=== PATIENT | female | born 1975 | race Hispanic/Latino ===

== ENCOUNTER 2020-04-15 17:10 | Emergency (ER) | payer OTHER ==
[2020-04-15] MEDS ORDERED: ACETAMINOPHEN-CODEINE 300/30MG TAB ONE (18:34)
== END 2020-04-15 20:28 | disposition home or self-care (01) ==
LOC: EDH 17:10
DX: S39.012A Strain of muscle, fascia and tendon of lower back, initial encounter (principal); S09.90XA Unspecified injury of head, initial encounter; M79.18 Myalgia, other site; W18.39XA Other fall on same level, initial encounter; Y93.89 Activity, other specified; Y92.89 Other specified places as the place of occurrence of the external cause; Y99.8 Other external cause status
CPT/HCPCS: 70450; 72125; 72128; 72131

== ENCOUNTER 2024-04-26 14:11 | Emergency (ER) | payer SELFPAY ==
[~2024-04-26] VITALS: Ht 172.7 cm; Wt 86.6 kg
--- NOTE | 2024-04-26 14:29 | ERN ---
ED Note History of Present Illness Stated Complaint: SOB Chief Complaint: Cough Time Seen by MD: 14:15 Dictation: Patient is a 49-year-old female coming in today with complaints of shortness a breath and cough intermittent and nonproductive for two weeks. No fever no chills no nausea vomiting no loss of taste or smell. She states she has already been seen at [facility] for the same complaint and they told her everything was fine and then she went and saw a doctor. Doctor referred her to [facility] for definitive care. No treatment has been rendered by her doctor or [facility]. Denies any history of chest pain back pain no history of asthma pulmonary fibrosis and cough is nonproductive. Allergies: Coded Allergies: No Known Allergies (Unverified Allergy, Unknown, 04/26/24) Past Medical History Past Medical History: Anxiety, Depression, High Cholesterol Surgical History: Appendectomy Surgical History Other: TUMMY TUCK, BREAST REDUCTION History: Not Applicable LMP: Mar 17, 2024 RN Note Reviewed/Agreed w/PFSH: Yes Review of System Dictation CONSTITUTIONAL: Negative except for HPI HEAD/FACE: Negative except for HPI EENT: Negative except for HPI RESPIRATORY: Negative except for HPI SOB/nonproductive cough, two weeks GASTROINTESTINAL/ABDOMINAL: Negative except for HPI GENITOURINARY: Negative except for HPI MUSCULOSKELETAL: Negative except for HPI INTEGUMENTARY: Negative except for HPI NEUROLOGICAL/PSYCH: Negative except for HPI HEMATOLOGIC/LYMPHATIC: Negative except for HPI All Systems Negative, Except as noted above. 13 point review of systems assessed and all negative except for above. Initial Vital Sign VS Vital Signs Date Time Temp Pulse Resp B/P (MAP) Pulse Ox O2 Delivery O2 Flow Rate FiO2 04/26/24 14:13 98.4 99 20 118/76 99 0 04/26/24 15:05 Room Air* 21 Physical Exam Dictation Vital Signs reviewed General Appearance: Alert, oriented x 3, n mild acute distress, well developed, nourished. Head and Face: non-traumatic. Eyes: PERRL, pink conjunctivas, eyelid no trauma, anterior chamber with arcus senilis. Ears: Pinnas intact and no signs of trauma or erythema ear canals clear and no discharge TM no erythema Nose: No discharge, no bleeding. Oropharynx: Mouth normal, tongue pink, pharynx clear,no erythema, tonsils no exudates, no abscesses noted, mucous membrane moist Neck: Supple, non-tender, no thyromegaly, no masses, no JVD, no bruits Breast:Deferred Chest:No tenderness, no crepitus, no paradoxical movement, no retractions Lungs:Clear, well-ventilated, symmetric, no rales, no wheezing, no rhonchi, no stridor, good breath sounds bilaterally no tachypnea no retractions Heart: Regular rate, regular rhythm, no murmur, no gallops Vascular: no peripheral edema, Abdomen: Soft, positive bowel sounds, nondistended, no guarding, nontender, no rebound, no masses no hepatomegaly, no splenomegaly, no Kirby's sign, no hernias. Rectal: Deferred Genital: Deferred Neurological: Normal speech, motor function intact, sensory function intact Musculoskeletal: Neck nontender, full range of motion, back nontender, full range of motion, Extremities: nontender, full range of motion Skin: Color pink, dry, no turgor, no rash, no lacerations, no abrasions, no contusions. Lymphatic: Deferred Results (Laboratory/Radiology) Laboratory/Radiology Laboratory Tests Test 04/26/24 14:42 SARS-CoV-2 Antigen (Rapid) PRESUMPTIVE NEGATIVE Group A Streptococcus Rapid negative (NEGATIVE) 1558, CHEST 1VW HISTORY: Shortness of breath, cough COMPARISON: None FINDINGS: A frontal projection of the chest was obtained. No acute pulmonary infiltrates is seen. The heart is normal in size. Prominent interstitial markings are seen. Mild degenerative changes are seen. No evidence of aortic calcification is seen. IMPRESSION: 1. No acute pulmonary infiltrate is seen. Labs Reviewed?: Yes ED Course ED Course Orders Procedure Category Date Status Time Covid19 (Sars Antigen LAB 04/26/24 Complete Rapid) 14:23 Chest 1vw RAD 04/26/24 Resulted 14:23 Dexamethasone 4mg/Ml PHA 04/26/24 Complete 1ml Vial (Dexametha 14:30 Rapid (Group A Strep) LAB 04/26/24 Complete 14:23 Budesonide 0.5 Mg/2 PHA 04/26/24 Complete Ml Inh (Pulmicort 0. 14:23 Albuterol 0.083% PHA 04/26/24 Complete 2.5mg/3ml (Proventil 14:30 Current Medications Medications (Trade) Dose Ordered Sig/Cresencio Route PRN Reason Start Time Stop Time Status Last Admin Dose Admin Albuterol Sulfate (Proventil 0.083% 2.5mg/3ml) 5 mg ONCE ONCE IH 04/26/24 14:30 04/26/24 14:31 DC 04/26/24 15:19 Budesonide (Pulmicort 0.5 Mg/2ml) 1 mg ONCE STAT IH 04/26/24 14:23 04/26/24 14:27 DC 04/26/24 15:19 Dexamethasone Sodium Phosphate (dexaMETHasone 4MG/ML 1ML VIAL) 8 mg ONCE ONCE IM 04/26/24 14:30 04/26/24 14:31 DC 04/26/24 15:29 Vital Signs Date Time Temp Pulse Resp B/P (MAP) Pulse Ox O2 Delivery O2 Flow Rate FiO2 04/26/24 15:21 90 20 04/26/24 15:05 98.4 99 18 118/76 99 Room Air* 0 21 04/26/24 14:13 98.4 99 20 118/76 99 0 SIXTEEN 40, COUGH IS MARKEDLY IMPROVED AFTER BUDESONIDE AND STEROIDS. DISCHARGED HOME WITH REACTIVE AIRWAY DISEASE AND COUGH. TOLD TO SEE HER PRIMARY CARE DOCTOR. Medical Decision Making MDM MDM DISCHARGE BASED ON CHEST X-RAY AND SWABS FOR STREP AND COVID. CHEST X-RAY CLEAR SWABS NEGATIVE PATIENT TREATED WITH STEROIDS AND BUDESONIDE WITH ALBUTEROL STATES SHE FEELS MARKEDLY IMPROVED AND COUGH IS CLEAR. WE WILL DISCHARGED TO FOLLOW UP WITH HER PRIMARY CARE DOCTOR IN 1-2 DAYS DX & DISP Disposition: Discharge Departure Impression: Primary Impression: Reactive airway disease Additional Impression: Cough Condition: Stable Scripts Benzonatate (Tessalon Perles) 100 Mg Cap 100 MG PO TID for cough, #30 CAP 0 Refills Prov: ARNOLDO CHU NP 04/26/24 Methylprednisolone (Medrol) 4 Mg Tab.ds.pk 1 TAB PO AD for 6 Days, #21 TAB 0 Refills 6 on day 1 then reduce by one tablet daily until gone Prov: ARNOLDO CHU NP 04/26/24 Budesonide (Pulmicort Flexhaler) 90 Mcg Aer.pow.ba 90 MCG IH BID for 10 Days, #1 UDCAP Prov: ARNOLDO CHU APPLICATION COORDINATOR 04/26/24 Albuterol Sulfate (Ventolin Hfa/Proventil Hfa/Proair Hfa) 90 Mcg Puff 2 PUFF IH Q4H for WHEEZING, #1 INHALER 0 Refills Prov: ARNOLDO CHU NP 04/26/24 Additional Instructions: FOLLOW-UP WITH PRIMARY CARE PROVIDER IN 1 TO 2 DAYS. TAKE MEDICATIONS DIRECTED HERE IN THE EMERGENCY ROOM. OKAY TO CONTINUE HOME MEDICATIONS UNLESS OTHERWISE DISCUSSED DURING YOUR VISIT IN THE EMERGENCY ROOM TODAY. RETURN TO YOUR NEAREST EMERGENCY ROOM IF SYMPTOMS WORSEN OR IF THERE IS NO IMPROVEMENT. CALL 911 IF YOU NEED IMMEDIATE ASSISTANCE. TAKE TYLENOL OR MOTRIN [id number] NEEDED AND IF NO CONTRAINDICATIONS ARE PRESENT. INCREASE ORAL HYDRATION. A WOUND CULTURE OR URINE CULTURE WAS ORDERED HERE IN THE EMERGENCY ROOM DEPARTMENT PLEASE FOLLOW-UP WITH PRIMARY CARE PROVIDER AND ADVISE THEM TO GET REPEAT PORTS FROM OUR FACILITY. IF YOU HAD ANY ROSINA WRAP/SPLINTS THAT WERE APPLIED HERE, PLEASE DO NOT REMOVE THEM UNTIL YOU SEE YOUR PRIMARY CARE OR SPECIALTY. TAKE MEDROL DOSEPAK DIRECTED UNTIL GONE. USE ALBUTEROL INHALER EVERY4 HOURS WHILE AWAKE FOR THE NEXT THREE DAYS. USE BUDESONIDE DIRECTED TWICE A DAY FOR 10 DAYS DIRECTED. FOLLOW UP WITH ON WEDNESDAY WITHOUT FAIL Referrals: SELF,REFERRAL (PCP) Time of Disposition: 16:41 I have reviewed the case, and I agree with, Diagnosis and Plan ARNOLDO CHU NP Apr 26, 2024 14:29
[2024-04-26 15:17] LABS: RAPID GROUP A STREP negative (NEGATIVE)
[2024-04-26] MEDS: ALBUTEROL 0.083% 2.5 MG/3 ML INH IH ONE (15:19)
[2024-04-26] MEDS: BUDESONIDE 0.5 MG/2 ML INH IH STA (15:19)
[2024-04-26 15:21] VITALS: PULSE 90; RESP 20
[2024-04-26] MEDS: dexaMETHasone SOD PHOSPHATE 4 MG/ML 1ML VIAL IM ONE (15:29)
--- NOTE | 2024-04-26 16:28 | HMCIMG ---
CHEST 1VW HISTORY: Shortness of breath, cough COMPARISON: None FINDINGS: A frontal projection of the chest was obtained. No acute pulmonary infiltrates is seen. The heart is normal in size. Prominent interstitial markings are seen. Mild degenerative changes are seen. No evidence of aortic calcification is seen. IMPRESSION: 1. No acute pulmonary infiltrate is seen.
[2024-04-26 16:30] LABS: COVID19 (SARS ANTIGEN RAPID) PRESUMPTIVE NEGATIVE (NEGATIVE)
[2024-04-26] MEDS ORDERED: BUDE90AE3 IH (16:43)
[2024-04-26] MEDS ORDERED: ALBUHFA IH (16:43)
[2024-04-26] MEDS ORDERED: METH4TAB3 PO (16:43)
[2024-04-26] MEDS ORDERED: BENZ-39 PO (16:43)
[2024-04-26 16:47] VITALS: BP 120/75; PULSE 90; RESP 16; TEMP 98.3; O2SAT 98
== END 2024-04-26 16:54 | disposition home or self-care (01) ==
LOC: EDH 14:11
DX: J45.909 Unspecified asthma, uncomplicated (principal); R05.9 Cough, unspecified; E78.00 Pure hypercholesterolemia, unspecified; Z79.51 Long term (current) use of inhaled steroids; Z90.49 Acquired absence of other specified parts of digestive tract; Z20.822 Contact with and (suspected) exposure to COVID-19
CPT/HCPCS: 99284; 71045; 87426; 87880; 96372; 94640; J1100